=== PATIENT | male | born 1945 | race Caucasian/White ===

== ENCOUNTER 2019-05-31 07:48 | Day surgery (SDC) | payer MEDICARE, SELFPAY ==
--- NOTE | 2019-05-30 17:29 | PM.PREOP ---
Pre-operative Note Interval Note History & Physical reviewed/Exam performed by Physician: Yes Changes to H&P: No
[2019-05-31 08:13] VITALS: BP 148/72; PULSE 58; RESP 15; TEMP 36.5; BMI 26.6
[2019-05-31] MEDS: PROPARACAINE 0.5% OPHTH SOL 2 DROPS EYE-OP (08:22)
[2019-05-31] MEDS: CATARACT EYE COMPOUND (10 DROPS/SYRINGE) 3 DROPS EYE-OP (08:23)
--- NOTE | 2019-05-31 09:07 | SUR.OPER ---
Supine on eye stretcher, head on extension cradle secured with tape. Arms tucked at sides with blanket. Pillow under knees.
[2019-05-31] MEDS: ERYTHROMYCIN OPHTH 1 GM OINT 1 APPLIC EYE-LEFT (09:13)
[2019-05-31] MEDS: LIDOCAINE JELLY 2% 5 ML 1 APPLIC TOP (09:13)
[2019-05-31] MEDS: MOXIFLOXACIN INJ 5 MG/ML VIAL EYE-OP (09:14)
[2019-05-31] MEDS: PHENYLEPHRINE/LIDOCAINE VIAL (OR) 0.2 ML EYE-OP (09:15)
[2019-05-31] MEDS: TRIAMCINOLONE 50 MG/5 ML VIAL INJ (09:15)
[2019-05-31] MEDS: CHONDROIDTIN/SOD HYALURONATE 1.05 ML SYRINGE INTRAOCULA (09:16)
[2019-05-31] MEDS: BALANCED SALT IRRIG SOLN NO.2 500 ML, EPINEPHrine 1 MG IRR (09:16)
[2019-05-31] MEDS: HYALURONATE SODIUM 10 MG/ML SYRINGE INJ (09:17)
[2019-05-31 09:45] VITALS: BP 155/84; PULSE 63; RESP 16; TEMP 36.3; O2SAT 97
--- NOTE | 2019-05-31 09:46 | P.OP_ITS ---
Operative Date/Time/Diagnoses Date of procedure: 05/31/19 Time of procedure: 08:45 Procedure & Clinicians Procedure: Preoperative diagnoses: 1. 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 2. 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 Had RK and LASIK. 3. 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 Postoperative diagnoses: 1. Cataract removed by phacoemulsification with placement of posterior chamber intraocular lens. Procedure: Phacoemulsification with posterior chamber intraocular lens implant Surgeon: Leonor Mendoza MD Complications: None Specimen: None Implant: [id number]+16.0 Blood loss: None Anesthesia: Topical with monitored standby Description of procedure: Patient presents with a complaint of decreased vision due to cataract which is affecting activities of daily living. It is affecting both his distance and reading vision. He has high risk for a intra- ocular lens calculation due to both previous PRP and LASIK with corneal scarring. A slight nearsighted target is picked up with the goal being as close to distance as possible. The patient wants surgery to improve vision. The patient was taken to the operating room and given IV sedation. A drop of proparacaine was placed, he is then prepped using Betadine solution, and draped in the usual sterile fashion. 2% topical lidocaine jelly was then placed on the cornea to help visibility due to the corneal scar. Temporal approach was made, a 1 mm side-port incision was made 90? from the proposed clear corneal incision position. Phenylephrine 1.5% mixed with 1% xylocaine 0.2 cc was placed into the anterior chamber. Adequate dilation but fair resulted. Viscoat followed by Healon was then placed. A 2.6 mm clear incision with a 2.6 mm blade was placed. A 360 degree capsulorrhexis style capsulotomy was then performed with a cystitome needle on a Healon. Hydrodelineation and hydrodissection were performed. The phacoemulsification unit is introduced, and sculpting notice used to groove the central lens. It is then removed in chopping mode. Epi nucleus is removed with epinuclear mode and irrigation aspiration was used to remove the peripheral cortex. The posterior capsule is polished. The intraocular lens is selected, inspected, power confirmed, and placed in the posterior chamber. The wound was stromally hydrated and tested for leaks, there was none and it was left sutureless. Vigamox 0.1 cc was placed into the anterior chamber. Alexandralog 0.2 cc was placed in the superior subconjunctival space. A drop of antibiotic and was placed and the eye was patched and shielded. The patient was stable and returned to the recovery room in excellent condition. Dictated by: Leonor Mendoza MD Copy to: [facility] Same procedure as scheduled: Yes
[2019-05-31 10:05] VITALS: BP 127/71; PULSE 52; RESP 15; TEMP 36.5; O2SAT 98
== END 2019-05-31 10:15 | disposition home or self-care (01) ==
LOC: OR 07:51
PROVIDERS: PCP Internal Medicine; Referring Provider Ophthalmology; Visit Provider Ophthalmology
PROC: (CPT 66984; principal; 2019-05-31 08:45)
DX: H25.812 Combined forms of age-related cataract, left eye (principal); H44.20 Degenerative myopia, unspecified eye; H17.9 Unspecified corneal scar and opacity
CPT/HCPCS: 66984; J0171; J2250; J3010; J3301

== ENCOUNTER → 2023-12-23 10:50 | Outpatient (CLI) | payer MEDICARE, SELFPAY ==
[2023-12-23 12:00] LABS: Estimated Glomerular Filt Rate > 60 mL/min (>60)
== END ==
PROVIDERS: PCP Family Medicine; Referring Provider Urology; Visit Provider Urology
DX: R31.0 Gross hematuria (principal)
CPT/HCPCS: 36415; 82565

== ENCOUNTER → 2023-12-30 09:38 | Outpatient (CLI) | payer MEDICARE, SELFPAY ==
--- NOTE | 2023-12-30 10:00 | DI.CT.S_ITS ---
PROCEDURE: CT IVP A/P W/WO INDICATIONS: 78 y/o M w/ gross hematuria, eval upper tracts TECHNIQUE: Optional 5 mm thick noncontrast images acquired from the diaphragm to the symphysis pubis. After the administration of intravenous contrast, 5 mm thick images acquired from the diaphragm to the symphysis pubis after a 10-minute delay. 2 mm thick coronal and sagittal reformats were then performed of the kidneys and ureters. For radiation dose reduction, the following was used: automated exposure control, adjustment of mA and/or kV according to patient size. COMPARISON: None. FINDINGS: Image quality: Diagnostic. Kidneys and Ureters: Both kidneys are normal in size, without hydronephrosis or nephrolithiasis. No perinephric fat stranding. There is normal bilateral renal enhancement. There are several peripelvic cysts, at least 1 bilaterally and larger on the right than the left. Renal calyces appear normal in morphology when filled with contrast. Opacified portions of both ureters demonstrate normal caliber Bladder: Bladder wall thickness is concentrically mildly thickened and mildly trabeculated but not associated with a focal mucosal mass. There is a densely calcified bladder calculus centered to the left of midline measuring up to 1.2 cm, displaced superiorly by a relatively prominently enlarged prostate gland. This measures 1/3/03 Hounsfield units. Lower chest: Unremarkable. Liver: No biliary distension but there is a subtle mass within the superior right hepatic margin adjacent to the uppermost extent of the intrahepatic IVC. This measures up to 4.6 cm and is more easily visualized by the noncontrast imaging that was obtained. Gallbladder: No radiopaque gallstones or wall thickening. Biliary ducts: No biliary dilation. Pancreas: No ductal dilation. Spleen: Size is within normal limits. Adrenal Glands: No adrenal nodules. Stomach and Bowel: Normal colonic caliber, without significant wall thickening. Peritoneum: No abnormal intraperitoneal fluid. No free air. Ventral Wall: No hernia. Abdominal Nodes: No retroperitoneal or mesenteric adenopathy by size criteria. Vessels: Aorta and inferior vena cava are normal in size. PELVIS: Pelvic Organs: Unremarkable. Pelvic Nodes: No enlarged lymph nodes. Miscellaneous: No inguinal hernias are seen. Bones: No aggressive osseous abnormality. IMPRESSION: No collecting system distension or mass is identified, no renal cortical mass lesion is found. Several peripelvic cysts are incidentally noted. Prostate gland enlargement, single 1.2 cm bladder calculus. Bladder wall concentric mild thickening and trabeculation. No visualized bladder urothelial mass. Unexpected finding of a 4.6 cm solid-appearing mass within the superior margin of the right hepatic lobe adjacent to the intrahepatic IVC. This shows slight heterogeneous internal enhancement and may represent an atypical hemangioma or malignant mass. Targeted single organ ultrasound is recommended in the near term to attempt clear visualization of this structure by ultrasound to determine whether it has imaging characteristics of hemangioma. Dictated by: Alexey Solis M.D. on 12/30/2023 at 11:45 Approved by: Alexey Solis M.D. on 12/30/2023 at 12:00
== END ==
PROVIDERS: PCP Family Medicine; Referring Provider Urology; Visit Provider Urology
DX: N28.1 Cyst of kidney, acquired (principal); R31.0 Gross hematuria; N40.0 Benign prostatic hyperplasia without lower urinary tract symptoms; N21.0 Calculus in bladder; N32.89 Other specified disorders of bladder; R16.0 Hepatomegaly, not elsewhere classified
CPT/HCPCS: 52000; 74178; 81002; 99214; Q9967

== ENCOUNTER → 2024-04-13 10:32 | Outpatient (CLI) | payer MEDICARE, OTHER, SELFPAY | PROVIDERS: PCP Family Medicine; Visit Provider Urology | DX: N40.1 Benign prostatic hyperplasia with lower urinary tract symptoms (principal); R31.0 Gross hematuria; N21.0 Calculus in bladder | CPT/HCPCS: 81002; 87077; 87086; 87186; 99214 ==